=== PATIENT | male | born 2005 | race Hispanic/Latino ===

== ENCOUNTER 2024-06-16 11:16 | Emergency (ER) | payer OTHER ==
[~2024-06-16] VITALS: Ht 182.9 cm; Wt 98.4 kg
[~2024-06-16 11:16] MED LIST: METHOCARBAMOL750 MG PO
[2024-06-16 15:09] VITALS: PULSE 58; RESP 16; TEMP 98.7
[2024-06-16 15:11] VITALS: BP 138/73; PULSE 58; RESP 16; TEMP 98.7; O2SAT 99
== END 2024-06-16 15:09 | disposition home or self-care (01) ==
LOC: ER 11:31
DX: S63.682A Other sprain of left thumb, initial encounter (principal); V53.5XXA Driver of pick-up truck or van injured in collision with car, pick-up truck or van in traffic accident, initial encounter; Y92.488 Other paved roadways as the place of occurrence of the external cause
CPT/HCPCS: 99283